=== PATIENT | female | born 1940 | race African-American/Black ===

== ENCOUNTER 2022-06-26 18:39 | Inpatient (IN) | payer BC ==
[~2022-06-26] VITALS: Ht 165.1 cm; Wt 64.9 kg
[2022-06-26 20:39] LABS: HEMATOCRIT. 41.7 % (36.0-48.0); MEAN CORPUSCULAR VOLUME 83.5 fL (81.0-99.0); MEAN PLATELET VOLUME 9.5 fl (7.4-10.4); PLATELET 229 x1000/uL (130-400); RED CELL DISTRIBUTION WIDTH 14.8 % (11.6-14.6)
[2022-06-26 20:45] LABS: CHLORIDE 111 mEq/L (98-107)
[2022-06-26 20:55] LABS: ETHANOL BLOOD < 10 mg/dL
[2022-06-26 20:56] LABS: PLATELET ESTIMATE NORMAL
[2022-06-26] MEDS ORDERED: SODIUM CHLORIDE 0.9% 1,000 ML IV ONE (23:00)
[2022-06-27] MEDS ORDERED: CLONIDINE 0.1MG TABLET PO PRN
[2022-06-27] MEDS ORDERED: ONDANSETRON HCL 4MG/2ML INJ IV PRN
[2022-06-27] MEDS ORDERED: SODIUM CHLORIDE 0.9% 1,000 ML IV ONE
[2022-06-27] MEDS ORDERED: DOCUSATE SODIUM 100MG CAPSULE PO PRN
[2022-06-27 04:15] LABS: HEMATOCRIT. 36.1 % (36.0-48.0); HEMOGLOBIN. 11.7 g/dL (12.0-16.0); MEAN CORPUSCULAR HEMOGLOBIN 26.4 pg (28.0-32.0); MEAN CORPUSCULAR VOLUME 81.6 fL (81.0-99.0); MEAN PLATELET VOLUME 9.5 fl (7.4-10.4); PLATELET 254 x1000/uL (130-400); RED BLOOD CELL COUNT 4.42 mill/uL (4.2-5.4); RED CELL DISTRIBUTION WIDTH 14.2 % (11.6-14.6)
[2022-06-27 04:53] LABS: VITAMIN B12 SERUM 588 pg/mL (211-911)
[2022-06-27 07:37] LABS: PLATELET ESTIMATE NORMAL
[2022-06-27] MEDS ORDERED: ENOXAPARIN 40MG/0.4ML SYR SUBCUT SCH (09:00)
[2022-06-27 11:49] LABS: CLARITY URINE CLOUDY (CLEAR); COLOR URINE YELLOW (YELLOW); KETONES URINE 1+ (NEGATIVE); LEUKOCYTE ESTERASE URINE 1+ (NEGATIVE); NITRITE URINE NEGATIVE (NEGATIVE); OCCULT BLOOD URINE NEGATIVE (NEGATIVE); PH URINE 5.5 (4.5-8.0); PROTEIN URINE 1+ (NEGATIVE); SPECIFIC GRAVITY URINE 1.031 (1.005-1.030)
[2022-06-27 12:13] LABS: *AMPHETAMINES SCREEN URINE NEGATIVE (NEGATIVE); *BARBITURATES SCREEN URINE NEGATIVE (NEGATIVE); *BENZODIAZEPINES SCREEN URINE NEGATIVE (NEGATIVE); *COCAINE SCREEN URINE NEGATIVE (NEGATIVE); CANNABINOID URINE SCREEN NEGATIVE (NEGATIVE); METHADONE URINE SCREEN NEGATIVE (NEGATIVE); OPIATES URINE SCREEN NEGATIVE (NEGATIVE); PHENCYCLIDINE URINE SCREEN NEGATIVE (NEGATIVE)
[2022-06-27] MEDS: RISPERIDONE 0.5MG TABLET PO SCH (18:12)
[2022-06-27] MEDS ORDERED: CEPHALEXIN 250MG CAPSULE PO SCH (21:00)
[2022-06-27] MEDS: CEPHALEXIN 250MG CAPSULE PO SCH (21:38)
[2022-06-27] MEDS ORDERED: INSULIN REGULAR (HUMULIN R) 300UNITS/3ML VIAL SUBCUT ONE (23:30)
[2022-06-27 23:52] LABS: BASOPHILS % 0.6 % (0.0-2.0); EOSINOPHILS % 1.5 % (0.0-5.0); HEMATOCRIT. 34.8 % (36.0-48.0); HEMOGLOBIN. 11.1 g/dL (12.0-16.0); LYMPHOCYTES % 20.1 % (20.0-50.0); MEAN CORPUSCULAR HEMOGLOBIN 26.3 pg (28.0-32.0); MEAN CORPUSCULAR VOLUME 82.4 fL (81.0-99.0); MEAN PLATELET VOLUME 9.6 fl (7.4-10.4); MONOCYTES % 10.9 % (2.0-8.0); NEUTROPHILS % 66.9 % (40.0-76.0); PLATELET 225 x1000/uL (130-400); RED BLOOD CELL COUNT 4.23 mill/uL (4.2-5.4); RED CELL DISTRIBUTION WIDTH 14.6 % (11.6-14.6)
[2022-06-28] MEDS ORDERED: CEPHALEXIN 250MG/5ML ORAL SYRINGE PO SCH
[2022-06-28 10:00] VITALS: BP 123/75
[2022-06-28] MEDS: ENOXAPARIN 30MG/0.3ML SYR SUBCUT SCH (10:22)
[2022-06-28] MEDS: CEPHALEXIN 250MG CAPSULE PO SCH (10:22)
[2022-06-28] MEDS: RISPERIDONE 0.5MG TABLET PO SCH ×2 (10:22→17:51)
[2022-06-28] MEDS: ACETAMINOPHEN 325MG TABLET PO PRN (10:22)
[2022-06-28 10:29] VITALS: BP 123/75
[2022-06-28 12:00] VITALS: BP 111/52
[2022-06-28] MEDS: BLOOD SUGAR DIAGNOSTIC STRIP TEST SCH ×3 (12:45→21:09)
[2022-06-28] MEDS ORDERED: DEXTROSE 50% WATER 50ML SYRINGE IV PRN (12:45)
[2022-06-28 16:00] VITALS: BP 124/69
[2022-06-28 20:00] VITALS: BP 120/64
[2022-06-29] VITALS: BP 124/63
[2022-06-29 04:00] VITALS: BP 118/62
[2022-06-29] MEDS: BLOOD SUGAR DIAGNOSTIC STRIP TEST SCH ×4 (07:20→21:00)
[2022-06-29 08:00] VITALS: BP 107/98
[2022-06-29] MEDS: QUETIAPINE FUMARATE 50MG TABLET PO SCH (08:41)
[2022-06-29] MEDS: RISPERIDONE 0.5MG TABLET PO SCH ×2 (08:41→18:13)
[2022-06-29] MEDS: ENOXAPARIN 30MG/0.3ML SYR SUBCUT SCH (08:42)
[2022-06-29 12:00] VITALS: BP 105/60
[2022-06-29 16:00] VITALS: BP 109/69
[2022-06-29 20:00] VITALS: BP 140/64
[2022-06-30] VITALS: BP 126/64
[2022-06-30 04:00] VITALS: BP 148/70
[2022-06-30] MEDS: BLOOD SUGAR DIAGNOSTIC STRIP TEST SCH ×4 (06:52→21:00)
[2022-06-30 08:00] VITALS: BP 133/74
[2022-06-30] MEDS: QUETIAPINE FUMARATE 50MG TABLET PO SCH (08:59)
[2022-06-30] MEDS: RISPERIDONE 0.5MG TABLET PO SCH ×2 (08:59→17:25)
[2022-06-30] MEDS: ENOXAPARIN 30MG/0.3ML SYR SUBCUT SCH (08:59)
[2022-06-30 12:00] VITALS: BP 123/68
[2022-06-30 16:00] VITALS: BP 100/50
[2022-06-30 20:00] VITALS: BP 140/71
[2022-07-01] VITALS: BP 123/74
[2022-07-01 04:00] VITALS: BP 130/67
[2022-07-01] MEDS: BLOOD SUGAR DIAGNOSTIC STRIP TEST SCH ×4 (07:20→21:04)
[2022-07-01 08:00] VITALS: BP 147/80
[2022-07-01 12:00] VITALS: BP 120/70
[2022-07-01] MEDS: QUETIAPINE FUMARATE 50MG TABLET PO SCH (12:22)
[2022-07-01] MEDS: ENOXAPARIN 30MG/0.3ML SYR SUBCUT SCH (12:22)
[2022-07-01] MEDS: RISPERIDONE 0.5MG TABLET PO SCH ×2 (12:22→18:14)
[2022-07-01 20:00] VITALS: BP 124/61
[2022-07-02] VITALS: BP 105/46
[2022-07-02] MEDS: ACETAMINOPHEN 325MG TABLET PO PRN (02:53)
[2022-07-02 04:00] VITALS: BP 116/66
[2022-07-02] MEDS: BLOOD SUGAR DIAGNOSTIC STRIP TEST SCH ×3 (06:30→20:08)
[2022-07-02 08:00] VITALS: BP 125/71
[2022-07-02] MEDS: RISPERIDONE 0.5MG TABLET PO SCH ×2 (08:55→17:50)
[2022-07-02] MEDS: ENOXAPARIN 30MG/0.3ML SYR SUBCUT SCH (08:56)
[2022-07-02] MEDS: QUETIAPINE FUMARATE 50MG TABLET PO SCH (08:56)
[2022-07-02 12:00] VITALS: BP 127/55
[2022-07-02 16:00] VITALS: BP 121/54
[2022-07-02 20:00] VITALS: BP 92/57
[2022-07-03 04:00] VITALS: BP 113/58
[2022-07-03] MEDS: BLOOD SUGAR DIAGNOSTIC STRIP TEST SCH ×4 (06:28→21:00)
[2022-07-03 08:00] VITALS: BP 106/46
[2022-07-03] MEDS: RISPERIDONE 0.5MG TABLET PO SCH ×2 (09:13→18:01)
[2022-07-03] MEDS: QUETIAPINE FUMARATE 50MG TABLET PO SCH (09:13)
[2022-07-03] MEDS: ENOXAPARIN 30MG/0.3ML SYR SUBCUT SCH (09:14)
[2022-07-03 12:00] VITALS: BP 109/47
[2022-07-04 08:00] VITALS: BP 104/45
[2022-07-04] MEDS: BLOOD SUGAR DIAGNOSTIC STRIP TEST SCH ×4 (08:00→20:47)
[2022-07-04] MEDS: QUETIAPINE FUMARATE 50MG TABLET PO SCH (10:13)
[2022-07-04] MEDS: RISPERIDONE 0.5MG TABLET PO SCH ×3 (10:13→19:38)
[2022-07-04] MEDS: ENOXAPARIN 30MG/0.3ML SYR SUBCUT SCH (10:17)
[2022-07-04 12:00] VITALS: BP 133/71
[2022-07-04 16:00] VITALS: BP 117/61
[2022-07-04 20:00] VITALS: BP 121/63
[2022-07-05] VITALS: BP 125/56
[2022-07-05 04:00] VITALS: BP 107/63
[2022-07-05] MEDS: BLOOD SUGAR DIAGNOSTIC STRIP TEST SCH ×4 (06:22→21:58)
[2022-07-05 08:00] VITALS: BP 100/60
[2022-07-05] MEDS: RISPERIDONE 0.5MG TABLET PO SCH ×3 (09:00→17:00)
[2022-07-05] MEDS: QUETIAPINE FUMARATE 50MG TABLET PO SCH ×2 (09:00→09:01)
[2022-07-05] MEDS: ENOXAPARIN 30MG/0.3ML SYR SUBCUT SCH (09:01)
[2022-07-05 12:00] VITALS: BP 118/59
[2022-07-05 16:00] VITALS: BP 113/60
[2022-07-05 20:00] VITALS: BP 132/85
[2022-07-05] MEDS: BENZTROPINE MESYLATE 1MG TABLET PO SCH (21:00)
[2022-07-06] VITALS: BP 148/42
[2022-07-06 05:41] LABS: HEMATOCRIT. 32.8 % (36.0-48.0); HEMOGLOBIN. 10.7 g/dL (12.0-16.0); MEAN CORPUSCULAR HEMOGLOBIN 26.5 pg (28.0-32.0); MEAN CORPUSCULAR VOLUME 81.3 fL (81.0-99.0); MEAN PLATELET VOLUME 9.8 fl (7.4-10.4); PLATELET 210 x1000/uL (130-400); RED BLOOD CELL COUNT 4.04 mill/uL (4.2-5.4); RED CELL DISTRIBUTION WIDTH 14.3 % (11.6-14.6)
[2022-07-06 06:13] LABS: CHLORIDE 111 mEq/L (98-107)
[2022-07-06] MEDS: BLOOD SUGAR DIAGNOSTIC STRIP TEST SCH ×4 (06:43→20:31)
[2022-07-06 08:00] VITALS: BP 116/71
[2022-07-06] MEDS: QUETIAPINE FUMARATE 50MG TABLET PO SCH (08:50)
[2022-07-06] MEDS: RISPERIDONE 0.5MG TABLET PO SCH ×2 (08:51→17:00)
[2022-07-06] MEDS: ENOXAPARIN 30MG/0.3ML SYR SUBCUT SCH (08:53)
[2022-07-06] MEDS: LORAZEPAM 0.5MG TABLET PO PRN ×2 (12:15→20:25)
[2022-07-06 14:33] LABS: PLATELET ESTIMATE NORMAL
[2022-07-06] MEDS ORDERED: HALOPERIDOL LACTATE 5MG/ML VIAL IM NR (18:30)
[2022-07-06 20:00] VITALS: BP 115/40
[2022-07-06] MEDS: BENZTROPINE MESYLATE 1MG TABLET PO SCH (20:25)
[2022-07-07] VITALS: BP 115/52
[2022-07-07] MEDS: ACETAMINOPHEN 325MG TABLET PO PRN (01:30)
[2022-07-07 06:22] VITALS: BP 139/71
[2022-07-07] MEDS: BLOOD SUGAR DIAGNOSTIC STRIP TEST SCH ×4 (06:24→21:25)
[2022-07-07 08:00] VITALS: BP 131/77
[2022-07-07] MEDS: ENOXAPARIN 30MG/0.3ML SYR SUBCUT SCH (08:09)
[2022-07-07] MEDS: QUETIAPINE FUMARATE 50MG TABLET PO SCH ×2 (08:09→18:30)
[2022-07-07] MEDS: RISPERIDONE 0.5MG TABLET PO SCH ×2 (08:09→18:30)
[2022-07-07 12:07] VITALS: BP 138/49
[2022-07-07] MEDS: LORAZEPAM 0.5MG TABLET PO PRN (12:36)
[2022-07-07 20:00] VITALS: BP 94/55
[2022-07-07] MEDS: BENZTROPINE MESYLATE 1MG TABLET PO SCH (21:43)
[2022-07-08] MEDS: BLOOD SUGAR DIAGNOSTIC STRIP TEST SCH ×4 (07:20→21:39)
[2022-07-08 08:00] VITALS: BP 116/59
[2022-07-08] MEDS: QUETIAPINE FUMARATE 50MG TABLET PO SCH ×2 (09:21→18:01)
[2022-07-08] MEDS: ENOXAPARIN 30MG/0.3ML SYR SUBCUT SCH (09:21)
[2022-07-08] MEDS: RISPERIDONE 0.5MG TABLET PO SCH (09:21)
[2022-07-08 12:00] VITALS: BP 116/65
[2022-07-08] MEDS: RISPERIDONE 1MG TABLET PO SCH (18:01)
[2022-07-08 20:00] VITALS: BP 112/64
[2022-07-08] MEDS: BENZTROPINE MESYLATE 1MG TABLET PO SCH (21:36)
[2022-07-09] VITALS: BP 105/54
[2022-07-09 04:00] VITALS: BP 110/57
[2022-07-09] MEDS: BLOOD SUGAR DIAGNOSTIC STRIP TEST SCH ×4 (07:20→21:00)
[2022-07-09 08:00] VITALS: BP 109/46
[2022-07-09] MEDS: QUETIAPINE FUMARATE 50MG TABLET PO SCH ×2 (09:00→17:37)
[2022-07-09] MEDS: RISPERIDONE 1MG TABLET PO SCH ×2 (09:00→17:38)
[2022-07-09] MEDS: ENOXAPARIN 30MG/0.3ML SYR SUBCUT SCH (09:01)
[2022-07-09 12:00] VITALS: BP 105/50
[2022-07-09 16:00] VITALS: BP 106/44
[2022-07-09 20:00] VITALS: BP 146/70
[2022-07-09] MEDS: BENZTROPINE MESYLATE 1MG TABLET PO SCH (21:00)
[2022-07-10] VITALS: BP 144/72
[2022-07-10] MEDS: BLOOD SUGAR DIAGNOSTIC STRIP TEST SCH ×4 (07:35→21:00)
[2022-07-10 08:00] VITALS: BP 108/59
[2022-07-10] MEDS: ENOXAPARIN 30MG/0.3ML SYR SUBCUT SCH (09:00)
[2022-07-10] MEDS: QUETIAPINE FUMARATE 50MG TABLET PO SCH ×2 (09:14→18:01)
[2022-07-10] MEDS: RISPERIDONE 1MG TABLET PO SCH ×2 (09:14→18:01)
[2022-07-10 16:00] VITALS: BP 123/63
[2022-07-10 20:00] VITALS: BP 122/66
[2022-07-10] MEDS: LORAZEPAM 0.5MG TABLET PO PRN (21:49)
[2022-07-10] MEDS: BENZTROPINE MESYLATE 1MG TABLET PO SCH (21:49)
[2022-07-11 04:00] VITALS: BP 135/66
[2022-07-11] MEDS: BLOOD SUGAR DIAGNOSTIC STRIP TEST SCH ×4 (06:55→21:00)
[2022-07-11 08:00] VITALS: BP 129/73
[2022-07-11] MEDS: QUETIAPINE FUMARATE 50MG TABLET PO SCH ×2 (08:03→19:42)
[2022-07-11] MEDS: ENOXAPARIN 30MG/0.3ML SYR SUBCUT SCH (08:03)
[2022-07-11] MEDS: RISPERIDONE 1MG TABLET PO SCH ×2 (08:03→19:42)
[2022-07-11 12:00] VITALS: BP 111/60
[2022-07-11 16:00] VITALS: BP 125/61
[2022-07-11] MEDS ORDERED: OLANZAPINE 10 MG/VIAL IM PRN (20:45)
[2022-07-11] MEDS: BENZTROPINE MESYLATE 1MG TABLET PO SCH (22:01)
[2022-07-12] VITALS: BP 113/43
[2022-07-12 04:00] VITALS: BP 119/53
[2022-07-12] MEDS: BLOOD SUGAR DIAGNOSTIC STRIP TEST SCH ×4 (06:41→21:00)
[2022-07-12 08:00] VITALS: BP 120/71
[2022-07-12] MEDS: ENOXAPARIN 30MG/0.3ML SYR SUBCUT SCH (09:00)
[2022-07-12] MEDS: QUETIAPINE FUMARATE 50MG TABLET PO SCH ×2 (09:31→18:22)
[2022-07-12] MEDS: RISPERIDONE 1MG TABLET PO SCH ×2 (09:31→18:22)
[2022-07-12] MEDS: ACETAMINOPHEN 325MG TABLET PO PRN (09:31)
[2022-07-12 12:00] VITALS: BP 132/70
[2022-07-12 18:25] LABS: HEMATOCRIT 32.4 % (36.0-48.0); HEMOGLOBIN 10.5 g/dL (12.0-16.0); MEAN CORPUSCULAR HEMOGLOBIN 26.8 pg (28.0-32.0); MEAN CORPUSCULAR VOLUME 82.4 fL (81.0-99.0); PLATELET 193 x1000/uL (130-400); RED BLOOD CELL COUNT 3.93 mill/uL (4.2-5.4)
[2022-07-12 18:33] LABS: CHLORIDE 107 mEq/L (98-107)
[2022-07-12 20:13] VITALS: BP 128/72
[2022-07-12] MEDS: BENZTROPINE MESYLATE 1MG TABLET PO SCH (21:24)
[2022-07-13] VITALS: BP 99/40
[2022-07-13 07:54] LABS: HEMATOCRIT 32.3 % (36.0-48.0); HEMOGLOBIN 10.5 g/dL (12.0-16.0); MEAN CORPUSCULAR HEMOGLOBIN 26.5 pg (28.0-32.0); MEAN CORPUSCULAR VOLUME 81.6 fL (81.0-99.0); PLATELET 181 x1000/uL (130-400); RED BLOOD CELL COUNT 3.96 mill/uL (4.2-5.4); RED CELL DISTRIBUTION WIDTH 15.2 % (11.6-14.6)
[2022-07-13 08:00] VITALS: BP 132/69
[2022-07-13] MEDS: BLOOD SUGAR DIAGNOSTIC STRIP TEST SCH ×4 (08:03→21:00)
[2022-07-13 08:15] LABS: CHLORIDE 111 mEq/L (98-107)
[2022-07-13] MEDS: QUETIAPINE FUMARATE 50MG TABLET PO SCH ×2 (10:06→17:22)
[2022-07-13] MEDS: ENOXAPARIN 30MG/0.3ML SYR SUBCUT SCH (10:06)
[2022-07-13] MEDS: RISPERIDONE 1MG TABLET PO SCH ×2 (10:06→17:22)
[2022-07-13 12:00] VITALS: BP 138/52
[2022-07-13 16:00] VITALS: BP 128/62
[2022-07-13 20:00] VITALS: BP 104/58
[2022-07-13] MEDS: BENZTROPINE MESYLATE 1MG TABLET PO SCH (20:33)
[2022-07-13] MEDS ORDERED: ONDANSETRON 4MG ODT PO PRN (22:30)
[2022-07-14] VITALS: BP 120/53
[2022-07-14 04:00] VITALS: BP 110/56
[2022-07-14 07:04] LABS: BASOPHILS % 0.9 % (0.0-2.0); EOSINOPHILS % 2.9 % (0.0-5.0); HEMATOCRIT. 32.9 % (36.0-48.0); HEMOGLOBIN. 10.6 g/dL (12.0-16.0); LYMPHOCYTES % 37.3 % (20.0-50.0); MEAN CORPUSCULAR HEMOGLOBIN 26.4 pg (28.0-32.0); MEAN CORPUSCULAR VOLUME 81.9 fL (81.0-99.0); MONOCYTES % 11.3 % (2.0-8.0); NEUTROPHILS % 47.6 % (40.0-76.0); PLATELET 178 x1000/uL (130-400); RED BLOOD CELL COUNT 4.02 mill/uL (4.2-5.4)
[2022-07-14 07:36] LABS: CHLORIDE 108 mEq/L (98-107)
[2022-07-14] MEDS: BLOOD SUGAR DIAGNOSTIC STRIP TEST SCH ×4 (07:36→21:29)
[2022-07-14 07:57] LABS: AMYLASE 121 IU/L (25-115)
[2022-07-14 08:00] VITALS: BP 129/55
[2022-07-14] MEDS: ENOXAPARIN 40MG/0.4ML SYR SUBCUT SCH (09:11)
[2022-07-14] MEDS: QUETIAPINE FUMARATE 50MG TABLET PO SCH ×2 (09:11→17:43)
[2022-07-14] MEDS: RISPERIDONE 1MG TABLET PO SCH ×2 (09:11→17:43)
[2022-07-14 12:00] VITALS: BP 114/67
[2022-07-14 16:00] VITALS: BP 124/84
[2022-07-14 20:00] VITALS: BP 113/55
[2022-07-14] MEDS: BENZTROPINE MESYLATE 1MG TABLET PO SCH (20:40)
[2022-07-15] VITALS: BP 123/70
[2022-07-15 04:00] VITALS: BP 100/51
[2022-07-15] MEDS: BLOOD SUGAR DIAGNOSTIC STRIP TEST SCH ×4 (07:20→21:00)
[2022-07-15 08:00] VITALS: BP 125/65
[2022-07-15] MEDS: RISPERIDONE 1MG TABLET PO SCH ×2 (10:44→17:51)
[2022-07-15] MEDS: QUETIAPINE FUMARATE 50MG TABLET PO SCH ×2 (10:44→17:51)
[2022-07-15] MEDS: ENOXAPARIN 40MG/0.4ML SYR SUBCUT SCH (10:51)
[2022-07-15 12:00] VITALS: BP 106/51
[2022-07-15 12:07] LABS: BASOPHILS % 0.7 % (0.0-2.0); HEMATOCRIT. 36.4 % (36.0-48.0); HEMOGLOBIN. 11.7 g/dL (12.0-16.0); LYMPHOCYTES % 28.5 % (20.0-50.0); MEAN CORPUSCULAR HEMOGLOBIN 26.6 pg (28.0-32.0); MEAN CORPUSCULAR VOLUME 82.7 fL (81.0-99.0); MEAN PLATELET VOLUME 10.2 fl (7.4-10.4); MONOCYTES % 10.9 % (2.0-8.0); NEUTROPHILS % 57.9 % (40.0-76.0); PLATELET 186 x1000/uL (130-400); RED CELL DISTRIBUTION WIDTH 14.8 % (11.6-14.6)
[2022-07-15 12:34] LABS: CHLORIDE 105 mEq/L (98-107)
[2022-07-15] MEDS ORDERED: GLUCAGON,HUMAN RECOMBINANT 1MG/VIAL IM PRN (14:15)
[2022-07-15 16:00] VITALS: BP 139/63
[2022-07-15 20:00] VITALS: BP 123/53
[2022-07-15] MEDS: BENZTROPINE MESYLATE 1MG TABLET PO SCH (22:01)
[2022-07-16] VITALS: BP 110/64
[2022-07-16 04:00] VITALS: BP 118/75
[2022-07-16] MEDS: BLOOD SUGAR DIAGNOSTIC STRIP TEST SCH ×4 (07:20→21:00)
[2022-07-16 08:00] VITALS: BP 117/60
[2022-07-16] MEDS: QUETIAPINE FUMARATE 50MG TABLET PO SCH ×2 (08:24→21:00)
[2022-07-16] MEDS: ENOXAPARIN 40MG/0.4ML SYR SUBCUT SCH (08:24)
[2022-07-16] MEDS: RISPERIDONE 1MG TABLET PO SCH ×2 (08:24→21:00)
[2022-07-16 12:00] VITALS: BP 131/63
[2022-07-16] MEDS ORDERED: LORAZEPAM 2MG/ML CPJ IV NR (13:45)
[2022-07-16 16:00] VITALS: BP 120/56
[2022-07-16 16:14] LABS: HEMATOCRIT 34.4 % (36.0-48.0); MEAN CORPUSCULAR HEMOGLOBIN 26.7 pg (28.0-32.0); MEAN CORPUSCULAR VOLUME 83.7 fL (81.0-99.0); PLATELET 174 x1000/uL (130-400); RED BLOOD CELL COUNT 4.11 mill/uL (4.2-5.4)
[2022-07-16] MEDS: DEXT 5%/0.45% NACL 1000ML 1,000 ML IV SCH (16:35)
[2022-07-16 17:11] LABS: CHLORIDE 109 mEq/L (98-107)
[2022-07-16 19:29] LABS: CLARITY URINE CLEAR (CLEAR); COLOR URINE YELLOW (YELLOW); KETONES URINE TRACE (NEGATIVE); LEUKOCYTE ESTERASE URINE NEGATIVE (NEGATIVE); NITRITE URINE NEGATIVE (NEGATIVE); OCCULT BLOOD URINE NEGATIVE (NEGATIVE); PH URINE 5.5 (4.5-8.0); PROTEIN URINE NEGATIVE (NEGATIVE); SPECIFIC GRAVITY URINE 1.029 (1.005-1.030); UROBILINOGEN URINE 0.2 E.U./dL (0.2-1.0)
[2022-07-16 20:00] VITALS: BP 122/60
[2022-07-16] MEDS: BENZTROPINE MESYLATE 1MG TABLET PO SCH (21:00)
[2022-07-17] MEDS: BLOOD SUGAR DIAGNOSTIC STRIP TEST SCH ×4 (07:46→21:00)
[2022-07-17 08:00] VITALS: BP 128/68
[2022-07-17] MEDS: ENOXAPARIN 40MG/0.4ML SYR SUBCUT SCH ×2 (08:37→08:41)
[2022-07-17] MEDS: RISPERIDONE 1MG TABLET PO SCH ×4 (08:37→16:49)
[2022-07-17] MEDS: QUETIAPINE FUMARATE 50MG TABLET PO SCH ×4 (08:37→16:48)
[2022-07-17] MEDS: DEXT 5%/0.45% NACL 1000ML 1,000 ML IV SCH (08:38)
[2022-07-17] MEDS ORDERED: LORAZEPAM 2MG/ML CPJ IV PRN (09:15)
[2022-07-17 12:00] VITALS: BP 130/60
[2022-07-17 16:00] VITALS: BP 154/68
[2022-07-17] MEDS ORDERED: LORAZEPAM 2MG/ML CPJ IM PRN (18:30)
[2022-07-17] MEDS ORDERED: HALOPERIDOL LACTATE 5MG/ML VIAL IM PRN (18:45)
[2022-07-17 20:00] VITALS: BP 127/56
[2022-07-17] MEDS: BENZTROPINE MESYLATE 1MG TABLET PO SCH (21:51)
[2022-07-18] VITALS: BP 125/55
[2022-07-18 04:00] VITALS: BP 140/62
[2022-07-18] MEDS: DEXT 5%/0.45% NACL 1000ML 1,000 ML IV SCH (05:18)
[2022-07-18 08:00] VITALS: BP 143/56
[2022-07-18] MEDS: QUETIAPINE FUMARATE 50MG TABLET PO SCH ×2 (08:44→17:28)
[2022-07-18] MEDS: RISPERIDONE 1MG TABLET PO SCH ×2 (08:44→17:28)
[2022-07-18] MEDS: ENOXAPARIN 40MG/0.4ML SYR SUBCUT SCH (08:44)
[2022-07-18 12:00] VITALS: BP 134/80
[2022-07-18] MEDS: BLOOD SUGAR DIAGNOSTIC STRIP TEST SCH ×2 (16:45→20:46)
[2022-07-18 20:00] VITALS: BP 151/81
[2022-07-18 20:28] VITALS: BP 151/81
[2022-07-18] MEDS: BENZTROPINE MESYLATE 1MG TABLET PO SCH (20:43)
== END 2022-07-18 21:44 | DRG 640 ==
LOC: ER 18:39 → MICUSO 22:59 → EDBEDREQ 23:03 → EDBEDREQTM 23:03 → 6EST 06-28 09:41 → 5WST 07-17 15:27
PROVIDERS: ADMIT Internal Medicine Pulmonary Disease; ATTEND Internal Medicine Pulmonary Disease
DX: E16.2 Hypoglycemia, unspecified (principal); G93.41 Metabolic encephalopathy; N39.0 Urinary tract infection, site not specified; E44.1 Mild protein-calorie malnutrition; F03.90 Unspecified dementia, unspecified severity, without behavioral disturbance, psychotic disturbance, mood disturbance, and anxiety; F20.9 Schizophrenia, unspecified; Z20.822 Contact with and (suspected) exposure to COVID-19; Z68.23 Body mass index [BMI] 23.0-23.9, adult
CPT/HCPCS: 36415; 71045; 80048; 80053; 80305; 80320; 81003; 82010; 82150; 82607; 82962; 83036; 84443; 84484; 85025; 85027; 87426; 97110; 97116; 97162; 97166; 97530; 97535; 99285; C1893; J1610; J1630; J1650; J1815; J2060; J2405; J3490; J7030; G0480

== ENCOUNTER 2022-08-17 08:34 | Emergency (ER) | payer BC ==
[~2022-08-17] VITALS: Ht 162.6 cm; Wt 61.0 kg
[2022-08-17] MEDS: AMLODIPINE 5MG TABLET PO ONE ×2 (09:11→09:13)
[2022-08-17 10:21] LABS: BASOPHILS % 0.5 % (0.0-2.0); EOSINOPHILS % 0.6 % (0.0-5.0); HEMATOCRIT. 40.9 % (36.0-48.0); HEMOGLOBIN. 12.8 g/dL (12.0-16.0); LYMPHOCYTES % 12.3 % (20.0-50.0); MEAN CORPUSCULAR HEMOGLOBIN 26.2 pg (28.0-32.0); MEAN CORPUSCULAR VOLUME 83.5 fL (81.0-99.0); MEAN PLATELET VOLUME 10.8 fl (7.4-10.4); MONOCYTES % 12.6 % (2.0-8.0); PLATELET 145 x1000/uL (130-400); RED CELL DISTRIBUTION WIDTH 14.6 % (11.6-14.6)
[2022-08-17 10:39] LABS: CHLORIDE 105 mEq/L (98-107)
[2022-08-17 17:48] VITALS: BP 139/70
== END 2022-08-17 18:15 | disposition short-term general hospital (02) ==
LOC: ER 08:34 → CANBEDREQ 08-18 00:01
DX: G93.40 Encephalopathy, unspecified (principal); I16.0 Hypertensive urgency; F03.90 Unspecified dementia, unspecified severity, without behavioral disturbance, psychotic disturbance, mood disturbance, and anxiety; F20.9 Schizophrenia, unspecified; Z20.822 Contact with and (suspected) exposure to COVID-19
CPT/HCPCS: 36415; 70450; 71045; 80053; 85025; 87426; 93005; 99285; C9803